=== PATIENT | male | born 1945 | race African-American/Black ===

== ENCOUNTER 2016-06-30 15:30 | Outpatient (CLI) ==
[2014-03-25 12:30] VITALS: BMI 19.1
--- NOTE | 2016-06-30 17:09 | DI ---
EXAM: Radiographs, left hip HISTORY: Left hip pain. COMPARISON: 05/02/2011. TECHNIQUE: Two views. FINDINGS: Bone mineralization is normal. There is no fracture or dislocation. Moderate left hip j oint space narrowing and marginal osteophyte formation noted. No erosive changes are seen. Soft ti ssues are unremarkable save for atherosclerotic calcifications. IMPRESSION: Moderate left hip osteoarthritis, mildly worsened from prior study.
--- NOTE | 2016-06-30 17:12 | DI ---
EXAM: LUMBAR SPINE 5 VIEWS HISTORY: Hip and back pain FINDINGS: Lumbar spine five views including bilateral obliques. There is severe, diffuse degenerat barrington disc and facet disease with no noticeable loss of vertebral body height or acute fracture. 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 Oblique views are limited. Sacroiliac joints are relatively uninvolved with only m ild arthropathy, greater on the right. Coarse calcifications are seen superimposed to the right of the upper lumbar spine possibly indicating pancreatic calcifications, indeterminate. Significant at herosclerotic disease. IMPRESSION: Severe degenerative changes of the spine. Indeterminate calcifications which may be wit hin the pancreas. Atherosclerotic disease.
== END 2016-06-30 15:31 | disposition home or self-care (01) ==
LOC: RAD 15:30
PROVIDERS: ATTEND General Practice
DX: M25.552 Pain in left hip (principal); M25.551 Pain in right hip

== ENCOUNTER 2016-12-25 16:08 | Outpatient (CLI) ==
[2014-03-25 12:30] VITALS: BMI 19.1
[2016-12-25 17:02] LABS: BASOPHILS % (AUTO) 0.4 % (0.0-3.0); BILIRUBIN,URINE Negative (NEGATIVE); EOSINOPHILS # (AUTO) 0.3 K/ul (0.0-0.7); EOSINOPHILS % (AUTO) 3.7 % (0.0-7.0); HEMATOCRIT 42.9 % (42.0-52.0); HEMOGLOBIN 14.3 g/dl (14.0-18.0); IMMATURE GRANULOCYTE % (AUTO) 0.3 % (0.0-5.0); KETONES,URINE Trace (NEGATIVE); LEUKOCYTE ESTERASE ,URINE Negative (NEGATIVE); LYMPHOCYTES # (AUTO) 2.5 K/uL (0.60-3.4); LYMPHOCYTES % (AUTO) 36.9 (10.0-50.0); MEAN CORPUSCULAR HEMOGLOBIN 30.9 pg (27.0-31.0); MEAN CORPUSCULAR HGB CONC 33.3 (31.8-35.4); MEAN CORPUSCULAR VOLUME 92.7 fl (80.0-94.0); MONOCYTES # (AUTO) 0.6 K/uL (0.4-2.0); MONOCYTES % (AUTO) 9.6 (0-10); NEUTROPHILS # (AUTO) 3.3 K/ul (2.0-6.9); NEUTROPHILS % (AUTO) 49.1; NITRITE,URINE Negative (NEGATIVE); PH,URINE 5.5 (5-9); PLATELET COUNT 187 10^3/uL (140-440); PROTEIN,URINE 3+ (NEGATIVE); RED BLOOD COUNT 4.63 10^6/ul (4.70-6.10); URINE, BLOOD Negative (NEGATIVE)
[2016-12-25 17:03] LABS: ADD URINE MICROSCOPIC YES
[2016-12-25 17:11] LABS: ALBUMIN 3.7 g/dL (3.4-5.0); ALBUMIN/GLOBULIN RATIO 0.9; ANION GAP 18.1; BILIRUBIN,TOTAL 0.23 mg/dL (0.00-1.20); BUN/CREATININE RATIO 19.04; CHOL/HDL RATIO 4.4 (4.5-6.4); CREATININE 0.84 mg/dL (0.60-1.10); POTASSIUM 4.1 mmol/L (3.5-5.1); TOTAL PROTEIN 7.8 g/dL (5.8-8.1)
== END 2016-12-25 16:09 | disposition home or self-care (01) ==
LOC: LAB 16:08
PROVIDERS: ATTEND General Practice
DX: E78.5 Hyperlipidemia, unspecified (principal); Z79.899 Other long term (current) drug therapy
CPT/HCPCS: 36415; 80053; 80061; 81001; 85025

== ENCOUNTER 2016-12-26 08:08 | Outpatient (CLI) ==
[2014-03-25 12:30] VITALS: BMI 19.1
--- NOTE | 2016-12-26 16:07 | MRI ---
EXAM: MRI lumbar spine without IV contrast. DATE: 12/26/2016. HISTORY: Low back pain. TECHNIQUE: Sagittal and axial T1W and T2W sequences of the lumbar spine along with sagittal IR and coronal T2W sequences were obtained using 1.2 Chelita magnet. No IV contrast. COMPARISON: LS spine series [address] lumbar spine 16 September 2009. FINDINGS: There are five [id number] lumbar vertebra. No lumbar scoliosis is evident. A 2.2 m m anterior subluxation of L3 relative to L2, a 2 mm anterolisthesis of L5 relative to L4, and 3.2 mm anterior subluxation of S1 relative to L5 are due to facet disease. No acute fracture, osseous mal ignancy, or pars interarticularis defect is demonstrated. Large osteophytes are visible throughout the lumbar spine. Mild T12-L1, mild L1-2, moderate L2-3, moderate L3-4, moderate L4-5, and moderate /marked L5-S1 disc space narrowing is detected. No sacral fracture or stress reaction is apparent. Small anterior osteophytes and T2W increased signal suggest minor bilateral SI joint arthritis. Co nus medullaris terminates at L2. Visible spinal cord is normal. No retroperitoneal lymphadenopathy, paraspinal mass, or aortic aneurysm is detected. Atheroscleroti c plaques are present within the aortic wall. Paraspinal musculature is symmetric bilaterally. Vis ible portions of the liver, spleen, adrenal glands and right kidney are normal. T2W bright, T1W sameera k, well-circumscribed 14 mm focus in the inferior pole cortex of the left kidney is likely benign cy st, and corresponds with a water density (HU = 0) lesion from prior CT scan. Segmental analysis: T11-12: Normal, except for minor/mild bilateral foraminal narrowing due to mild facet disease. T12-L1: Minor posterior disc bulge and slight facet arthropathy do not cause central stenosis or fo raminal stenosis. L1-2: Small concentric disc bulge, mild bilateral facet arthropathy, and dorsal epidural fat cause mild thecal sac narrowing, mild right foraminal stenosis, and moderate left foraminal stenosis. L2-3: Minor anterior subluxation of L3, small concentric disc bulge, mild facet arthropathy, and ab undant dorsal epidural fat cause marked thecal sac narrowing, and moderate / marked narrowing at the opening to each foramen. L3-4: Minimal anterior subluxation of L4, small concentric disc bulge, mild facet arthropathy, and abundant dorsal epidural fat cause marked central canal stenosis and moderate/marked narrowing at th e opening to each foramen. Each L3 nerve root contacts the disc bulge near the lateral margin of the foramen. L4-5: Moderate concentric disc bulge, mild bilateral facet arthropathy, moderate ligamentum flavum hypertrophy, and dorsal epidural fat cause marked central canal stenosis and marked bilateral forami nal stenoses. Each L4 nerve root contacts disc bulge/osteophyte at the foramen. L5-S1: Mild anterior subluxation of S1, small bilateral posterolateral spondylotic ridges at L5, mo derate concentric disc bulge, mild bilateral facet arthropathy and mild ligamentum flavum hypertroph y cause triangulation of the canal and severe bilateral foraminal stenoses. Each L5 nerve root appe ars compressed in the foramen. IMPRESSIONS: 1. Lumbar spine marked spondylosis, mild facet arthropathy, minor subluxations due to facet disease , and multilevel DDD. 2. Spinal lipomatosis contributes to multilevel central canal stenoses (L1-2: Mild. L2-3: Marked. L3-4: Marked. L4-5: Marked. L5-S1: Triangulation of canal). 3. Multilevel foraminal stenoses. Bilateral L3, both L4, and both L5 nerve roots compromised near the foramen, and may be sources for pain/radiculopathy. 4. Left kidney benign-appearing cortical cyst. 5. Marked abdominal aortic atherosclerosis.
== END 2016-12-26 08:09 | disposition home or self-care (01) ==
LOC: RAD 08:08
PROVIDERS: ATTEND General Practice
DX: M54.5 Low back pain (principal); R09.89 Other specified symptoms and signs involving the circulatory and respiratory systems

== ENCOUNTER 2017-03-07 09:08 | Outpatient (RCR) ==
[2014-03-25 12:30] VITALS: BMI 19.1
--- NOTE | 2017-03-09 11:17 | RS.OPPTEV2 ---
Date of Note: 03/07/17 Visit #: 1 Date of Evaluation: 03/07/17 Payer Source: MEDICARE Treatment Diagnosis: Low back and hip pain History of Condition/Mechanism of Injury:: Patient reports low back pain for ~ two years. States he had no specific injury. Symptoms in his back have gotten worse over time, with progressive hip pain. Prior Level of Function.....Patient was independent with: ADL's, Self Care, Ambulation/Mobility, Community Integration/Access Functional Limitations: Sleep, Self Care, ADL's, Reaching, Pushing, Pulling, Lifting, Carrying, Sitting, Standing, Bending, Squatting, Ambulation, Community Access/Integration Current Subjective/complaints:: Patient reports pain in the low back and hips. States the left hip is worse than the right. States he has pain most of the time. States he cannot walk without increased back or LLE pain. He has been using a cane with all ambulation. He denies groin or abdominal pain. Denies any tingling or numbness into the LE's. States he just has pain. He reports a few falls. Reports no recent falls in the las 3 months. He and his state that he has frequent "close calls" or stumbling. States left knee pain is from the back, down to the left knee. Reports difficulty sleeping. States he has to change positions frequently at night. States he can lay on the left hip, but not for very long. Reports having tremors. Patient points to the left iliac crest area when discussing left hip pain. Medical History Medical History: Hypertension, CVA/TIA, Arthritis (knees and hips) Surgical History Comments:: left ankle ORIF several years ago. Smoking Status: Current some day smoker Diagnostic Testing/Imaging:: MRI of Lumbar spine from 12/26/16 is in EMR. The impression mentions marked spondylosis, mild facet arthropathy, minor subluxations due to facet disease, and multilevel DDD. For full report, see EMR. Hx Home Medications: Gabapentin, Tramadol Patient's Goals: His goal is to get relief of back and left LE pain. Pain Assessment - Pain Description Pain Location: Low back and left LE pain Current Pain Intensity: 5/10 Worst Pain Intensity: 8/10 Functional Outcome Measure Oswestry LBP: 78 Tinetti: 12 (06/07) - G Codes & Severity Modifier G Codes & Modifier: Mobility current CL. Mobility goal CJ Source of G Code score: Oswestry LBP scale Observation - Observation Inspection: Left ankle appears swollen. Patient states this has been since ankle surgery several years ago. Posture: Forward Head, Rounded Shoulders, Decreased Lumbar Lordosis Handedness: Right Gait - Gait Pattern Gait Comments: Patient ambulates with a straight cane in the right hand, independently. He demonstrates a flexed posture, minimal clearance of bilateral feet during swing phase (especially on the left). Decreased left hip and knee flexion. Lacks toe off on the left LE. Step length on the left is shorter than the right. Demonstrates slow gait speed with ambulation. Pt's cane is a fixed wooden cane, that is too short for him and has no rubber tip. Patient was given the choice between two adjustable metal canes that we had received as donations. Cane was adjusted to his height. When walking with new cane, patient displayed more confidence and improved speed. - ROM Comments: Lumbar AROM is ~50% of normal range into flexion, sidebending, and lower trunk rotation. Extension is ~5 degrees past neutral. Bilateral LE AROM is WFL's, with the exception of the left hip and ankle. Left hip demonstrates hypomobility into flexion, adduction, abduction, IR, and ER. Demonstrates rigidity with movement in the LE's and trunk. - Strength Trunk Lateral Flexion: 4- Good- Trunk Rotation: 4- Good- Comments: Left LE strength is generally 4/5 at the hip and quads. Left HS 4+/5, ankle 4/5. Right LE 4+/5. - Special Tests Comments: Unable to perform Valid tests, as patient reports left hip pain with all movement of the left hip in sitting or supine. Palpation Comments:: Patient reports tenderness with palpation along bilateral lumbar paraspinals and left iliac crest. Reports mild tenderness over the left SI joint and piriformis. Sensation - Sensation Left Lower Extremity: Impaired Comments: Patient reports some impaired sensation along left ankle. States this has been since ankle surgery. Balance - Sitting Balance Static Sitting Balance: Good Dynamic Sitting Balance: Good - Standing Balance Static Standing Balance: Fair (+) Dynamic Standing Balance: Fair Additional Comments: Additional Comments: Left SLR 35 degrees in supine, right SLR to 40-45 degrees. Interventions - Exercise/Activities/Manual Therapy Exercises/Activities: None given today. Manual Therapy: NA - Charges Total Direct Minutes: 55 mins Total Treatment Time: 55 mins Procedures billed for this date of service:: Hari Medium complexity Assessment Assessment: Patient presents to therapy with a diagnosis of lumbar pain, degeneration of lumbar disc and spinal stenosis. He reports low back and left hip pain. Reports difficulty walking due to increased pain. States sleeping is interrupted frequently due to having to change positions from back and left hip pain. He scores himself at 78% impairment on Oswestry LBP scale. Scores 12/ 28 on Tinetti Assessment, which puts him in the category of being at a high risk for falls. Upon evaluation, he exhibits limited mobility of the left hip and rigidity with all movement of the LE's and trunk. He shows potential to benefit from treatment to reduce Left LE and back pain, as well as therapeutic activities to address hypomobility and gait deviations, to decrease his risk for falls. Patient Education: Education of diagnosis, Body/Joint mechanics, Home Safety, Education of Plan of Care Rehab Potential: Good Short Term Goals Goal #1: Left SLR 45 degrees. Goal to be met by: 03/23/17 Goal #2: Left leg pain localized to the low back. Goal to be met by: 03/23/17 Goal #3: Pt will consistently clear LLE during amb. in department with [facility]. Goal to be met by: 03/23/17 Goal #4: Left hip strength 4+/5. Goal to be met by: 03/23/17 Assisted Goals Goal #1: Pt knows HEP and to continue ex's to maintain functional level at D/C. Goal to be met by: 04/28/17 Goal #2: Score on Oswestry LBP scale improved to <39% impairment. Goal to be met by: 04/28/17 Goal #3: Score on Tinetti Assessment , to show decrease risk for falls. Goal to be met by: 04/28/17 Goal #4: Pt to amb. community distances with minimal to no increased back pain. Goal to be met by: 04/28/17 Plan - Treatment to be Provided Procedures: Therapeutic Exercises, Therapeutic Activity, Gait Training, Neuromuscular Rehab, Manual Therapy, Patient Education Modalities: Electrical Stimulation, Ultrasound/Phonophoresis, Hot Packs - Treatment Plan Frequency: 2-3 X week Duration: 6 weeks ORDER # VISITS AND/OR THROUGH DATE: 04/28/17 - Treatment Code (1) Low back pain Code(s): M54.5 - LOW BACK PAIN Qualifiers: Chronicity: chronic Back pain laterality: unspecified Sciatica presence: unspecified whether sciatica present Qualified Code(s): M54.5 - Low back pain ; G89.29 - Other chronic pain (2) Gait abnormality Code(s): R26.9 - UNSPECIFIED ABNORMALITIES OF GAIT AND MOBILITY Comments: R26.9 (3) Degeneration of lumbar or lumbosacral intervertebral disc Code(s): M51.37 - OTHER INTERVERTEBRAL DISC DEGENERATION, LUMBOSACRAL REGION Comments: M51.37 (4) Spinal stenosis of lumbar region Code(s): M48.06 - SPINAL STENOSIS, LUMBAR REGION Comments: M48.06
== END 2017-03-10 ==
PROVIDERS: ATTEND Nurse Practitioner
DX: M51.37 Other intervertebral disc degeneration, lumbosacral region (principal); M48.06 Spinal stenosis, lumbar region

== ENCOUNTER 2017-04-19 11:00 | Outpatient (RCR) ==
[2016-12-26 08:16] VITALS: BMI 19.1
--- NOTE | 2017-04-17 11:13 | RS.OPPTDN ---
Subjective Date of Note: 04/12/17 Visit #: 8 Date of Evaluation: 03/07/17 Payer Source: MEDICARE Treatment Diagnosis: Low back and hip pain Current Subjective/complaints:: Patient says today is a "so/so day." He says he is not sure if the damp weather is bothering his hip more or not. States pain is isolated at the L hip. Pain Assessment - Pain Description Pain Location: Low back and left LE pain Current Pain Intensity: slightly raised - Treatment Modality: Ultrasound Parameters/Method Applied: continuous @ 1.5 w/cm2 x 10 mins to the L superior glut/illiac crest Patient Position: Right Sidelying - Heat/Cryotherapy Treatment: Hot Pack (over the L LB and hip in sidelying x 15 mins) Interventions - Exercise/Activities/Manual Therapy Exercises/Activities: Patient continued to receive stretching into SKTC, HS, piriformis, and heel cords to the L LE. Lower trunk rotation x 3 all others x 4. Patient continues with pillow squeezes, isometric hip abd (L) and isometric hip flexion (L) x 10. SLR 2x8. SAQ 2# each leg 2x10, QS 2x10. Bridging 2 x 10. Reviewed HEP Total minutes of Exercise: 20 Manual Therapy: NA HOME EXERCISE PROGRAM: pillow squeezes, isometric hip abd (hooklying), SLR, bridging - Charges Total Direct Minutes: 30 Total Treatment Time: 45 Procedures billed for this date of service:: hp, u/s, ex Assessment: Patient experiencing slight increase in L hip pain. Pain is no longer at the low back, but indicated at the L illiac crest/superior glut. L HS is tighter today, but improves with stretching today. He admits improved pain to none at end of session. Patient Education: Body/Joint mechanics, Home Exercise Program Patient demonstrates compliance with HEP?: Yes Short Term Goals Goal #1: Left SLR 45 degrees. Goal to be met by: 03/23/17 Progress towards Goal:: Met Goal #2: Left leg pain localized to the low back. Goal to be met by: 03/23/17 Progress towards Goal:: Progressing Goal #3: Pt will consistently clear LLE during amb. in department with [facility]. Goal to be met by: 03/23/17 Progress towards Goal:: Met Goal #4: Left hip strength 4+/5. 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 Goal to be met by: 04/28/17 Progress towards goal: Progressing Goal #2: Score on Oswestry LBP scale improved to <39% impairment. Goal to be met by: 04/28/17 Goal #3: Score on Tinetti Assessment , to show decrease risk for falls. Goal to be met by: 04/28/17 Goal #4: Pt to amb. community distances with minimal to no increased back pain. Goal to be met by: 04/28/17 Plan PLAN OF CARE EXPIRES ON:: 04/28/17 ORDER # VISITS AND/OR THROUGH DATE: 04/28/17 PLAN: Progress Exercises (continue x 2 more sessions, then d/c) PLAN: Patient to continue to use u/s and therex to stretch L LE and strengthen the L hip/knee
--- NOTE | 2017-04-17 15:32 | RS.OPPTDN ---
Subjective Date of Note: 04/17/17 Visit #: 7 Date of Evaluation: 03/07/17 Payer Source: MEDICARE Treatment Diagnosis: Low back and hip pain Current Subjective/complaints:: Patient says his pain is much better than in the past few days. Pain Assessment - Pain Description Pain Location: Low back and left LE pain Current Pain Intensity: slightly raised - Treatment Modality: Ultrasound Parameters/Method Applied: continuous @ 1.5 w/cm2 x 8 mins to the L lumbar paraspinals and to the L illiac crest region/greater trochanter Patient Position: Right Sidelying - Heat/Cryotherapy Treatment: Hot Pack (over the L low back and L hip x 20 mins in sidelying) Interventions - Exercise/Activities/Manual Therapy Exercises/Activities: Patient continued to receive stretching into SKTC, HS, piriformis, and heel cords to the L LE. Lower trunk rotation x 3 all others x 4. Patient continues with pillow squeezes, isometric hip abd (L) and isometric hip flexion (L) x 10. SLR 2x8. SAQ 2# each leg 2x10, QS 2x10. Bridging 2 x 10. Reviewed HEP Total minutes of Exercise: 12 Manual Therapy: NA HOME EXERCISE PROGRAM: pillow squeezes, isometric hip abd (hooklying), SLR, bridging - Charges Total Direct Minutes: 20 Total Treatment Time: 40 Procedures billed for this date of service:: hp, u/s, ex Assessment: Patient maintaining low pain level through the past several days. Amb is steady using SC. He is able to duglas progressive therex and showing increased hamstring length. Patient Education: Education of diagnosis, Home Exercise Program Patient demonstrates compliance with HEP?: Yes Short Term Goals Goal #1: Left SLR 45 degrees. Goal to be met by: 03/23/17 Progress towards Goal:: Met Goal #2: Left leg pain localized to the low back. Goal to be met by: 03/23/17 Progress towards Goal:: Progressing Goal #3: Pt will consistently clear LLE during amb. in department with [facility]. Goal to be met by: 03/23/17 Progress towards Goal:: Met Goal #4: Left hip strength 4+/5. 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 Goal to be met by: 04/28/17 Progress towards goal: Progressing Goal #2: Score on Oswestry LBP scale improved to <39% impairment. Goal to be met by: 04/28/17 Goal #3: Score on Tinetti Assessment , to show decrease risk for falls. Goal to be met by: 04/28/17 Goal #4: Pt to amb. community distances with minimal to no increased back pain. Goal to be met by: 04/28/17 Plan PLAN OF CARE EXPIRES ON:: 04/28/17 ORDER # VISITS AND/OR THROUGH DATE: 04/28/17 PLAN: Patient to continue x 1 more visit for progression of therex
--- NOTE | 2017-04-20 08:23 | RS.OPPTDN ---
Subjective Date of Note: 04/19/17 Visit #: 9 Date of Evaluation: 03/07/17 Payer Source: MEDICARE Treatment Diagnosis: Low back and hip pain Current Subjective/complaints:: Patient says he is feeling even better today. He says he is walking more steadily. Pain Assessment - Pain Description Pain Location: Low back and left LE pain Current Pain Intensity: decreased - Heat/Cryotherapy Treatment: Hot Pack (20 mins over the L low back and hip sidelying) Interventions - Exercise/Activities/Manual Therapy Exercises/Activities: Patient continued to receive stretching into SKTC, HS, piriformis, and heel cords to the L LE. Lower trunk rotation x 3 all others x 4. Patient continues with ball squeezes, isometric hip abd (L) and isometric hip flexion (L) x 10. HIp abd in hooklying with green tband 2x10, SLR 2x8. SAQ increased to 3# each leg 2x10, QS 2x10. Bridging 2 x 10. Alternate LE lift 3# each leg x 10. Reviewed HEP with instructed stretches to maintain at home after next week. Also, gave tband for trunk stability exercises ( hooklying hip abd). Total minutes of Exercise: 24 Manual Therapy: NA HOME EXERCISE PROGRAM: pillow squeezes, isometric hip abd (hooklying), SLR, bridging - Charges Total Direct Minutes: 24 Total Treatment Time: 44 Procedures billed for this date of service:: fe, antolin Assessment: Patient maintaining reduced L hip pain currently and duglas progression of stretching/strengthening exercises. He demo improved HS and heel cord extensibility which is shown by increased stride with gait. Patient Education: Body/Joint mechanics, Home Exercise Program, Home Safety Patient demonstrates compliance with HEP?: Yes (inconsistent at times) Short Term Goals Goal #1: Left SLR 45 degrees. Goal to be met by: 03/23/17 Progress towards Goal:: Met Goal #2: Left leg pain localized to the low back. Goal to be met by: 03/23/17 Progress towards Goal:: Progressing Goal #3: Pt will consistently clear LLE during amb. in department with [facility]. Goal to be met by: 03/23/17 Progress towards Goal:: Met Goal #4: Left hip strength 4+/5. Goal to be met by: 03/23/17 Progress towards Goal:: Progressing Long-Term Goals Goal #1: Pt knows HEP and to continue ex's to maintain functional level at D/C. Goal to be met by: 04/28/17 Progress towards goal: Progressing Goal #2: Score on Oswestry LBP scale improved to <39% impairment. Goal to be met by: 04/28/17 Goal #3: Score on Tinetti Assessment , to show decrease risk for falls. Goal to be met by: 04/28/17 Goal #4: Pt to amb. community distances with minimal to no increased back pain. Goal to be met by: 04/28/17 Plan PLAN OF CARE EXPIRES ON:: 04/28/17 ORDER # VISITS AND/OR THROUGH DATE: 04/28/17 PLAN: Patient to continue x 1 more week for further stretching and progress hip strengthening.
--- NOTE | 2017-04-24 11:32 | RS.CXNS ---
Date of scheduled appointment: 04/24/17 Type: No Show
--- NOTE | 2017-04-30 09:13 | RS.QUICKDC ---
Discharge from PT Date of Discharge: 04/27/17 Number of Visits: 9 Reason for Discharge: Patient attended for treatment of LBP and L hip pain. Patient reported improved pain and ambulation. He admits performing HEP and demo increased WBing on the L LE with increased stride as well. Patient no showed final two visits. Reassessment of Tinetti's test was conducted using presentation of previous visit. Gcodes: Mobility D/c--CJ. Goal--CK. Score: 14/28 or 50% Improving by 2 points, limitation still due to having an AD
== END 2017-05-10 ==
PROVIDERS: ATTEND Nurse Practitioner
DX: M51.37 Other intervertebral disc degeneration, lumbosacral region (principal); M48.061 Spinal stenosis, lumbar region without neurogenic claudication

== ENCOUNTER 2017-07-06 09:03 | Outpatient (CLI) ==
[2016-12-26 08:16] VITALS: BMI 19.1
== END 2017-07-06 09:04 | disposition home or self-care (01) ==
LOC: LAB 09:03
PROVIDERS: ATTEND General Practice
DX: R53.83 Other fatigue (principal); E78.5 Hyperlipidemia, unspecified; Z79.899 Other long term (current) drug therapy
CPT/HCPCS: 36415; 80053; 80061; 81001; 85025

== ENCOUNTER 2017-12-05 11:18 | Outpatient (CLI) ==
[2016-12-26 08:16] VITALS: BMI 19.1
== END 2017-12-05 11:19 | disposition home or self-care (01) ==
LOC: FCC-LAB 11:18
PROVIDERS: ATTEND General Practice
DX: R53.83 Other fatigue (principal); E78.5 Hyperlipidemia, unspecified; Z12.5 Encounter for screening for malignant neoplasm of prostate; Z72.0 Tobacco use; Z79.899 Other long term (current) drug therapy
CPT/HCPCS: 36415; 80053; 81001; 85025

== ENCOUNTER 2018-01-13 14:45 | Emergency (ER) | payer OTHER ==
[2018-01-13 14:51] VITALS: BMI 20.7
[2018-01-13] MEDS ORDERED: SODIUM CHLORIDE 1,000 ML IV STA ×2 (14:55)
--- NOTE | 2018-01-13 14:56 | ED.PDOC ---
General ED Provider: Dr. DIEGO BURRELL Chief Complaint: Stroke Stated Complaint: Sudden onset of symptoms 90 minutes prior to arrival. states developed slurring of speech and started having trouble using left side of body and drooling approx 90 minutes ago. She states he was not using left side. Upon examination it is noted patient is actively moving left side of body now. His verbalization is slurring but seems improved. Noted that the left side of face is drooping. In addition patient states he had been having pain to left side of forehead but that is gone now. Time Seen by Physician: 14:46 Mode of Arrival: Wheelchair Information Source: Patient, Family Exam Limitations: Clinical condition, Altered mental status Primary Care Provider: Reina CONKLIN Nursing and Triage Documentation Reviewed and Agree: Yes Does patient meet sepsis criteria?: No System Inflammatory Response Syndrome: Not Applicable Sepsis Protocol: For patient's 13 years and over: Temp is 96.8 and below OR 101 and greater Pulse >90 BPM Resp >20/minute Acutely Altered Mental Status Are patient's symptoms suggestive of a new infection, such as: -Pneumonia -Skin, Soft Tissue -Endocarditis -UTI -Bone, Joint Infection -Implantable Device -Acute Abdominal Infection -Wound Infection -Meningitis -Blood Stream Catheter Infection -Unknown Neurological Complaint Exam - Neurological Deficit Complaint/Exam Patient Complains of: Reports: Muscle weakness (Speech deficit), Other Symptom Onset Unknown: Yes Symptom Onset Date: 01/13/18 Symptom Onset Time: 12:50 Onset: Sudden Symptoms Are: Still present Timing: Constant Initial Severity: Severe Current Severity: Moderate Location: Reports: E, E Character: Reports: Numbness, Paresthesia, Motor weakness Aggravating: Reports: None Alleviating: Reports: Rest Associated Signs and Symptoms: Reports: Confusion. Denies: Agitation, Responsiveness, Nuchal rigidity, Recent trauma, Remote trauma Related History: Denies: Similar episode Review of Systems - Review Of Systems Constitutional: Reports: Weakness Eyes: Reports: No symptoms Ears, Nose, Mouth, Throat: Reports: No symptoms Respiratory: Reports: No symptoms Cardiac: Reports: No symptoms GI: Reports: No symptoms : Reports: No symptoms Musculoskeletal: Reports: No symptoms Skin: Reports: No symptoms Neurological: Reports: Cognitive dysfunction, Headache, Weakness Endocrine: Reports: No symptoms Hematologic/Lymphatic: Reports: No symptoms All Other Systems: Reviewed and Negative Past Medical History - Past Medical History Previously Healthy: Yes Endocrine: Reports: None Cardiovascular: Reports: None Respiratory: Reports: None Hematological: Reports: None Gastrointestinal: Reports: None Genitourinary: Reports: None Neuro/Psych: Reports: None Musculoskeletal: Reports: Back Pain Cancer: Reports: None - Surgical History General Surgical History: Reports: None - Family History Family History: Reports: None - Social History Smoking Status: Current every day smoker Hx Substance Use: No Alcohol Screening: Occasionally Physical Exam - Physical Exam Appearance: Ill-appearing Ill-appearing: Moderate Pain Distress: None Eyes: MARKELL, EOMI, Conjunctiva clear ENT: Ears normal, Nose normal, Oropharynx normal Neck: Supple Respiratory: Airway patent, Breath sounds clear, Breath sounds equal, Respirations nonlabored Cardiovascular: RRR, Pulses normal, No rub, No murmur GI/: Soft, Nontender, No masses, Bowel sounds normal, No Organomegaly Musculoskeletal: Limited strength Skin: Warm, Dry, Normal color Neurological: Sensation intact, Motor intact (weakness), Reflexes intact, Cranial nerves intact, Alert, Oriented, Disoriented (time and place) Psychiatric: Affect appropriate, Mood appropriate Interpretation - Radiology Interpretation Radiology Interpretation By: Radiologist Exam Interpreted: CT Scan (Rt Posterior parietal lobe -acute stroke) Critical Care Note - Critical Care Note Total Time (mins): 60 Course - Course Hematology/Chemistry: 01/13/18 15:50 01/13/18 15:50 Orders, Labs, Meds: Lab Review 01/13/18 01/13/18 01/13/18 15:50 15:50 15:50 WBC 7.83 RBC 4.26 L Hgb 13.5 L Hct 39.8 L MCV 93.4 MCH 31.7 H MCHC 33.9 RDW Coeff of Spencer 14.8 Plt Count 193 Immature Gran % (Auto) 0.1 Neut % (Auto) 54.1 Lymph % (Auto) 31.3 Toombs % (Auto) 10.7 H Eos % (Auto) 3.2 Baso % (Auto) 0.6 Immature Gran # (Auto) 0.0 Neut # (Auto) 4.2 Lymph # (Auto) 2.5 Toombs # (Auto) 0.8 Eos # (Auto) 0.3 Baso # (Auto) 0.1 PT 10.8 INR 1.08 APTT 27.5 Sodium 140 Potassium 4.1 Chloride 108 H Carbon Dioxide 25 Anion Gap 11.1 BUN 11 Creatinine 0.85 Estimated GFR (MDRD) 107.00 BUN/Creatinine Ratio 12.94 Glucose 99 Calcium 9.2 Total Bilirubin 0.5 AST 18 ALT 16 Alkaline Phosphatase 71 Total Protein 6.8 Albumin 3.1 L Globulin 3.7 Albumin/Globulin Ratio 0.84 Orders Category Date Time Status EKG-(ED ONLY) Stat CARDIO 01/13/18 14:55 Completed ED ACCUCHECK ASSESSMENT .ONCE EMERGENCY 01/13/18 14:55 Active ED APPLY O2 .ONCE EMERGENCY 01/13/18 14:55 Active ED IV/MEDIPORT/POWERPORT .ONCE EMERGENCY 01/13/18 14:55 Active CBC W/ AUTO DIFF Stat LAB 01/13/18 15:50 Completed COMPREHENSIVE METABOLIC PANEL Stat LAB 01/13/18 15:50 Completed PARTIAL THROMBOPLASTIN TIME Stat LAB 01/13/18 15:50 Completed PT WITH INR Stat LAB 01/13/18 15:50 Completed 0.9 % Sodium Chloride [Saline Flush] MEDS 01/13/18 14:55 Discontinued 1 syr IVF PRN PRN Sodium Chloride 0.9% [Sodium Chloride] 1,000 ml MEDS 01/13/18 14:55 Discontinued IV 30 mls/hr Sodium Chloride 0.9% [Sodium Chloride] 1,000 ml MEDS 01/13/18 14:55 Discontinued IV 50 mls/hr CT HEAD W/O CONTRAST Stat RADS 01/13/18 14:55 Completed Medications Discontinued Medications Generic Name Dose Route Start Last Admin Trade Name Freq PRN Reason Stop Dose Admin Sodium Chloride 1,000 mls @ 30 mls/hr 01/13/18 14:55 01/13/18 15:06 Sodium Chloride IV 01/15/18 00:14 30 mls/hr .[id number] STA Administration Sodium Chloride 1,000 mls @ 50 mls/hr 01/13/18 14:55 01/13/18 15:06 Sodium Chloride IV 01/14/18 10:54 Not Given .Q20H STA Sodium Chloride 1 syr 01/13/18 14:55 01/13/18 15:06 Saline Flush IVF 1 syr PRN PRN Administration To flush IV Vital Signs: Temp Pulse Resp BP Pulse Ox 01/13/18 17:08 96.4 F L 66 20 165/100 H 01/13/18 14:46 98.5 F 69 20 171/92 H 98 Departure - Departure Time of Disposition: 17:00 Disposition: TSF SHORT-TRM HOSP Discharge Problem: CVA (cerebrovascular accident), Dementia Condition: Stable Pt referred to PMD for follow-up: Yes IPMP verified?: No Allergies/Adverse Reactions: Allergies No Known Allergies Allergy (Verified 01/13/18 14:54) Home Medications: Ambulatory Orders Gabapentin 400 mg PO TID #90 tab-cap 12/05/17 Meloxicam [Mobic] 15 mg PO DAILY #30 tab-cap 12/05/17 Additional Information: DIscussed findings with patient and family and recommend Transfer/ Attending Dr Conklin agreess.Patient transferred to [facility] for admission -Neuro agreed to consult/Hospitalist to admit/Contacted and agreed.
--- NOTE | 2018-01-13 15:29 | CT ---
EXAM: CT head without contrast HISTORY: Altered level of consciousness COMPARISON: CT head 03/16/2016 TECHNIQUE: Serial axial images of the brain were obtained from the skull base to the vertex without IV contrast. FINDINGS: The ventricles, cisterns and sulci are normal. The gunn-white matter junction is maintain ed. There is scattered low attenuation in the periventricular white matter. There is a low attenuat ion extending through the gunn-white matter junction in the posterior right frontal/parietal lobe. T his is new in comparison to 2017. There is loss of the sulci at this level.No midline shift or mass is identified. There is no abnormal intra or extra-axial fluid collection. The paranasal sinuses an d mastoid air cells are clear. The osseous calvarium is intact. IMPRESSION: 1. Low attenuation extending through the periventricular white matter in the right posterior frontal parietal lobe with loss of the sulci consistent with acute stroke. 2. Scattered generalized volume loss and microangiopathy. Critical results called to Dr. Zarate at 3:22 p.m. same day as exam.
[2018-01-13 17:09] VITALS: BP 165/100; TEMP 96.4
== END 2018-01-13 17:20 | disposition short-term general hospital (02) ==
LOC: ED 14:45
DX: I63.9 Cerebral infarction, unspecified (principal); F03.90 Unspecified dementia, unspecified severity, without behavioral disturbance, psychotic disturbance, mood disturbance, and anxiety; F17.210 Nicotine dependence, cigarettes, uncomplicated
CPT/HCPCS: 36415; 80053; 82962; 85025; 85610; 85730; 93005; 93010; 99285

== ENCOUNTER 2018-02-25 09:41 | Outpatient (RCR) | payer OTHER ==
--- NOTE | 2018-02-25 11:38 | RS.BEDDYS ---
Subjective Number of treatment sessions: 1 Date of Evaluation: 02/25/18 Treatment Diagnosis: Dysphagia Current Level of Function: This 72 year old male was referred for speech therapy from his neurologist. The patient had a CVA on 01/13/18 with residual left side weakness affecting his swallow and his speech. He also has a hx of onset of dementia which was exacerbated from the CVA. The patient has prior memory difficulty. Current Diet: Mechanical soft with thin liquids. Current Subjective/complaints:: The patient reported he has a drool on his left side. He also reported eating softer food items and cannot eat anything that is rough. He did not complain of any difficulty with swallowing or drinking. The reported he clears his throat occasionally after drinking. She also stated he eats fast and takes large bites frequently. The patient and also have concerns with his speech intelligibility, voice, and cognition. Medical History Comments:: CVA, heart murmur, arthritis. Left ankle surgery with metal plate. Hx Home Medications: The patient's list of medications were not reviewed at the initial evaluation. Patient's Goals: Patient: To speak clearer. Caregiver: to participate in activities together with less frustration General Information - General Denture Type: Not Applicable Patient Orientation: Person, Place, Time, Situation Ability to Follow Directions: Good Oral Expression Ability: Mild Impairment - Voice Voice Quality: Weak Voice Pitch: Mildly Low Voice Loudness: Mildly Soft/Quiet Oral-Facial Assessment - Face Facial Symmetry: Left Droop Facial Movement: Controlled - Dental/Labial Teeth Characteristics: Missing Lip Protrusion: Droops Left Lip Retraction: Droops Left Puff Cheeks: Reduced Strength - Lingual Protrusion: Reduced ROM (Deviates to left side) Retraction: Weak Tip Lateralization: Reduced ROM (Cannot touch tip to R, moves over too far on L. ) Tip Elevation: Weak (Difficulty with mandible and lingual disassociation) Repeated Tip Elevation: Weak Food Presentation - Solids Food Presented: Regular (Finger food over four trials) Behaviors/Comments: Pt fed self. Adequate size bites were taken. Impulsive behaviors noted with self-feeding. Patient had moderate oral residue post swallow. Swallow was effortful initially, but easier after two trials. No overt s/s of aspiration. - Liquids Liquid Presented: Thin (via open cup and straw) Behaviors/Comments: Via open cup, pt had no loss of liquids. Immediate swallow response with 2 swallows. delayed throat clear and distorted vocal quality post swallow. Trials via straw was noted with difficulty with straw placement to midline. Throat clears with all trials. - Recommendations: Dysphagia Evaluation Dietary Recommendations: Normal Comments:: Regular diet with some restrictions to meats and nuts. Patient will not use thickener in the home. Thin liquids to be used with strategies. Dysphagia Swallow Precautions/Strategies: Sitting Upright (90 deg), Double Swallow, Small Bites and Sips, Alternate Liquids/Solids Comments:: Pt requires supervision with meals. Strategies to be taught at future speech therapy sessions. Small meals throughout the day to reduce excessive hunger and impulsive eating. Monitor rate of intake. Finger or lingual sweep to clear left sulcus. - Summary Dysphagia Evaluation Summary: Pt's deficits are characterized with oral phase dysphagia. Pt presented with left side weakness, decreased buccal strength, reduced coordination and ROM with lingual tip in/out of oral cavity. Pt is at risk for aspiration. Further Therapy Indicated?: Yes Comments: Next session pt to be evaluated with dysarthria test and cognitive testing. Begin NMES kavya for oral phase dysphagia, upon MD approval. Rehab Potential: Good Functional Reporting G Codes: Swallowing Current CJ Goal CI Severity Impairment Rationale: Pt has risk for aspiration with certain dry, rough textures. Pt has restrictions to regular diet texture. Short Term Goals Problem: Weakness Goal #1: Complete buccal exercises over 25 repetitons given v/v cues. Goal to be met by: 03/18/18 Goal #2: Complete lingual exercises over 25 repetitions given v/v cues. Goal to be met by: 03/18/18 Goal #3: Demonstrate compensatory swallow strategies given v/v cues Goal to be met by: 03/11/18 Goal #4: Verbalize safe swallow precautions given v/v cues. Goal to be met by: 03/18/18 Director Women Goals Goal #1: Consume safest and least restrictive diet texture w/o overt s/s of asp. Goal to be met by: 04/01/18 Plan Duration of Treatment: 4 Weeks Frequency of Treatment: 1-2/week Anticipated Discharge Destination: Home Comments: Next session the patient will be evaluated with speech, voice, and cognition. If MD approves begin NMES immediately. - Treatment Code (1) Dysphagia, oral phase Code(s): R13.11 - DYSPHAGIA, ORAL PHASE
== END 2018-03-10 23:59 ==
PROVIDERS: ATTEND Nurse Practitioner Family
DX: I63.9 Cerebral infarction, unspecified (principal); R41.3 Other amnesia; R13.10 Dysphagia, unspecified

== ENCOUNTER 2018-03-01 07:42 | Outpatient (CLI) ==
--- NOTE | 2018-03-01 13:43 | CT ---
EXAM: CT angiogram of the [place] with contrast TECHNIQUE: Helical axial CT angiogram of the [place] was performed with contrast with coron al and sagittal and multiplanar reconstructions as well as separate work station 3-D renderings. COMPARISON: CT angiogram of the neck from same day and head CT from 01/13/2018 HISTORY: Prior stroke FINDINGS: Right internal carotid artery distribution: There is extensive calcific atherosclerosis seen involvin g the carotid siphon which results in a very high-grade stenosis just proximal to the supraclinoid se gment probably 80-90% or higher. There is a modest stenosis of the proximal aspect of the right midd le cerebral artery. There is a high-grade stenosis seen at the distal aspect of the right middle cer ebral artery just before the bifurcation. There is some attenuation of flow in the opercular branche s. The A1 segment of the anterior cerebral artery is not identified and is probably congenitally abs ent. Left internal carotid artery distribution: There is high-grade stenosis of the carotid siphon on the left as well measuring probably 80-90% luminal diameter. The supraclinoid segment is widely patent. There is a moderate stenosis noted involving the proximal aspect of the left M1 segment of the middl e cerebral artery and a moderate stenosis of the origin of the A1 segment of the anterior cerebral ar mercy. There are multifocal high-grade stenoses seen involving the distal aspect of a single azygos a nterior cerebral artery. There is high-grade stenosis seen involving the distal aspect of the left m iddle cerebral artery just before the bifurcation. The opercular branches appear to fill normally. Anterior communicating artery: Not present due to azygos anterior cerebral artery. Posterior communicating arteries: Not identified. Vertebral basilar system: There is multifocal atherosclerosis seen involving the V4 segment of the le ft vertebral artery resulting in about 60% narrowing proximally. There is irregular atherosclerosis seen involving the basilar artery but no critical stenosis. There is multifocal atherosclerosis of t he bilateral posterior cerebral arteries. The right vertebral artery is occluded. There are no aneurysms or vascular malformations. The dural sinuses are widely patent. Head CT shows no acute intervening abnormality. IMPRESSION: 1. Extremely advanced multifocal intracranial atherosclerosis as described above. 2. Occluded right vertebral artery. 3. 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
--- NOTE | 2018-03-01 13:52 | CT ---
EXAM: CTA of the neck was performed with contrast TECHNIQUE: Helical axial CTA of the neck was performed with contrast with multiplanar reconstruction s and separate work station 3-D renderings. COMPARISON: CT angiogram of the head from same day HISTORY: Stroke FINDINGS: There is no acute soft tissue abnormality. There are no neck masses or pathologic lymph nod es. The thyroid gland is unremarkable. No acute abnormality in the upper chest. There are no acute os seous abnormalities. There is moderate degenerative change in the cervical spine. Aorta: There is minimal calcific atherosclerosis of the aorta with no evidence for dissection or ane urysm. The bilateral subclavian and brachio-cephalic arteries are widely patent. There is normal bra nching anatomy of the great vessels. Right carotid artery: The origin of the right common carotid artery off the brachiocephalic and the common carotid artery in the neck are widely patent. There is some non stenotic calcific atherosclero sis of the carotid bifurcation. The cervical internal carotid artery is somewhat tortuous but widely patent. Right vertebral artery: The right vertebral artery is occluded however there is some minimal reconst itution of the V2 segment via muscular collaterals. This however is not continue on intracranially. Left carotid artery: The origin of the left common carotid artery off the aortic arch and the common carotid artery in the neck are widely patent. There is calcific atherosclerosis of the carotid bifur cation which is not hemodynamically significant. There is some tortuosity of the cervical internal c arotid artery however the vessel is otherwise widely patent. Left vertebral artery: There is extremely high-grade stenosis of the proximal aspect of the left anam tebral artery probably over 90%. The left vertebral artery V2 and V3 segments are widely patent. IMPRESSION: 1. Non stenotic calcific atherosclerosis of the bilateral carotid bifurcations. The carotid arterie s are widely patent. 2. Occluded right vertebral artery with trace reconstitution of the V2 segment with no intracranial flow. 3. High-grade critical stenosis of the proximal left vertebral artery over 90%. The left vertebral artery is otherwise widely patent distally.
== END 2018-03-01 07:43 | disposition home or self-care (01) ==
LOC: RAD 07:42
PROVIDERS: ATTEND Nurse Practitioner Family
DX: I63.511 Cerebral infarction due to unspecified occlusion or stenosis of right middle cerebral artery (principal); I65.21 Occlusion and stenosis of right carotid artery; I65.03 Occlusion and stenosis of bilateral vertebral arteries
CPT/HCPCS: 36415; 82565

== ENCOUNTER 2018-03-30 07:14 | Emergency (ER) | payer OTHER ==
[2018-03-30 07:22] VITALS: BP 182/95; TEMP 98.7; BMI 21.1
--- NOTE | 2018-03-30 07:39 | ED.PDOC ---
General ED Provider: Dr. CARSON LIMA Chief Complaint: Neck Pain Non-Injury Stated Complaint: neck pain postional none traummatic onset this morning Time Seen by Physician: 07:20 (seen with jacqueline frye ) Mode of Arrival: Wheelchair Information Source: Patient Exam Limitations: No limitations [facility] and Triage Documentation Reviewed and Agree: Yes Does patient meet sepsis criteria?: No System Inflammatory Response Syndrome: Not Applicable Sepsis Protocol: For patient's 13 years and over: Temp is 96.8 and below OR 101 and greater Pulse >90 BPM Resp >20/minute Acutely Altered Mental Status Are patient's symptoms suggestive of a new infection, such as: -Pneumonia -Skin, Soft Tissue -Endocarditis -UTI -Bone, Joint Infection -Implantable Device -Acute Abdominal Infection -Wound Infection -Meningitis -Blood Stream Catheter Infection -Unknown Musculoskeletal Complaint Exam - Neck Pain Complaint/Exam Mechanism of Injury: Reports: No known trauma Onset/Duration: this morning Symptoms Are: Still present Timing: Constant (postional p) Episodes Lasting: Hours Initial Severity: Mild Current Severity: Mild Location: Reports: Discrete Character: Reports: Aching Aggravating: Reports: None Alleviating: Reports: None Associated Signs and Symptoms: Denies: Swelling, Redness, Bruising, Fever, Nuchal rigidity, Weakness, Headache, Paresthesia Related History: Reports: Similar episode Meningitis Risk Factors: Reports: None Cervical Spine Injury Risk Factors: Reports: None Related Surgical History: Reports: None Carotid Bruit Present: No Pain on Passive Flexion: No Positive Kernig's Sign: No Tenderness: Present: Paraspinal (left postional and entirely reproduceable) Radiates to: Present: Other (movement of arm provokes the same pain negative chest pain ). Absent: Right arm, Left arm Focal Weakness: Present: None Focal Sensory Loss: Reports: None Nexus Low Risk Criteria: No post-midline CS tender, No evidence of intoxicat., No Altered LOC, No focal neuro deficit, No distracting injuries Differential Diagnoses: Sprain, Strain Review of Systems - Review Of Systems Constitutional: Reports: No symptoms Eyes: Reports: No symptoms Ears, Nose, Mouth, Throat: Reports: No symptoms Respiratory: Denies: Short of air Cardiac: Denies: Chest pain GI: Denies: Nausea, Vomiting : Reports: No symptoms Musculoskeletal: Reports: Neck pain Skin: Reports: No symptoms Neurological: Reports: No symptoms Endocrine: Reports: No symptoms Hematologic/Lymphatic: Reports: No symptoms All Other Systems: Reviewed and Negative Past Medical History - Past Medical History Previously Healthy: Yes Endocrine: Reports: None Cardiovascular: Reports: None Respiratory: Reports: None Hematological: Reports: None Gastrointestinal: Reports: None Genitourinary: Reports: None Neuro/Psych: Reports: None Musculoskeletal: Reports: Back Pain Cancer: Reports: None - Surgical History General Surgical History: Reports: None - Family History Family History: Reports: None - Social History Smoking Status: Current every day smoker, Light tobacco smoker Hx Substance Use: No Alcohol Screening: Occasionally Physical Exam - Physical Exam Appearance: Well-appearing, No pain distress, Well-nourished Eyes: MARKELL, EOMI, Conjunctiva clear ENT: Ears normal, Nose normal, Oropharynx normal Respiratory: Airway patent, Breath sounds clear, Breath sounds equal, Respirations nonlabored Cardiovascular: RRR, Pulses normal, No rub, No murmur GI/: Soft, Nontender, No masses, Bowel sounds normal, No Organomegaly Musculoskeletal: Normal strength, ROM intact, No edema, No calf tenderness Skin: Warm, Dry, Normal color Neurological: Sensation intact, Motor intact, Reflexes intact, Cranial nerves intact, Alert, Oriented Psychiatric: Affect appropriate, Mood appropriate Critical Care Note - Critical Care Note Total Time (mins): 0 Course - Course Vital Signs: Temp Pulse Resp BP Pulse Ox 03/30/18 07:15 98.7 F 105 H 20 182/95 H 93 L Departure - Departure Time of Disposition: 07:39 Disposition: HOME SELF-CARE Discharge Problem: Neck pain Instructions: Neck Pain (ED), Acute Neck Pain (ED) Condition: Good Pt referred to PMD for follow-up: Yes IPMP verified?: No Additional Instructions: Please call your Family Physician as soon as possible to schedule a follow-up appointment. Allergies/Adverse Reactions: Allergies No Known Allergies Allergy (Verified 03/30/18 07:22) Home Medications: Ambulatory Orders Atorvastatin Calcium 80 mg PO BEDTIME 03/30/18 Famotidine 40 mg PO DAILY 03/30/18 Gabapentin 300 mg PO TID 03/30/18
== END 2018-03-30 09:23 | disposition home or self-care (01) ==
LOC: ED 07:14
DX: M54.2 Cervicalgia (principal); F17.210 Nicotine dependence, cigarettes, uncomplicated
CPT/HCPCS: 99282

== ENCOUNTER 2018-04-05 07:09 | Outpatient (CLI) | END 2018-04-05 07:25 | disposition short-term general hospital (02) | LOC: AMBL 07:09 | PROVIDERS: ATTEND Emergency Medicine | DX: R42 Dizziness and giddiness (principal); I10 Essential (primary) hypertension; Z86.73 Personal history of transient ischemic attack (TIA), and cerebral infarction without residual deficits ==

== ENCOUNTER 2018-10-21 08:39 | Outpatient (CLI) | payer OTHER | END 2018-10-21 08:40 | disposition home or self-care (01) | LOC: RHC-LAB 08:39 | PROVIDERS: ATTEND General Practice | DX: E78.5 Hyperlipidemia, unspecified (principal); R53.83 Other fatigue; R68.89 Other general symptoms and signs; Z79.899 Other long term (current) drug therapy; Z12.5 Encounter for screening for malignant neoplasm of prostate; Z72.0 Tobacco use; Z78.9 Other specified health status | CPT/HCPCS: 36415; 80053; 80061; 81001; 82607; 84443; 85025 ==